=== PATIENT | male | born 2000 | race Caucasian/White ===

== ENCOUNTER 2023-01-31 17:06 | Emergency (ER) | payer MEDICAID, SELFPAY ==
[2023-01-31 17:08] VITALS: BP 142/79; PULSE 105; RESP 20; TEMP 36.9; O2SAT 99; BMI 22.6
--- NOTE | 2023-01-31 17:16 | EDS_ITS ---
HPI History of Present Illness Chief Complaint: Shortness of Breath [facility] Medical History (Updated 01/31/23 @ 19:[address] Rene Chappell, DO) Alcohol abuse Anxiety Migraines Allergy/AdvReac Type Severity Reaction Status Date / Time No Known Allergies Allergy Verified 01/31/23 17:08 Social History Smoking Status: Current every day smoker tobacco type: cigarettes EXAM Physical Exam Const Vital Signs: 01/31/23 17:08 01/31/23 17:17 01/31/23 17:25 Temperature 98.4 F Temperature Source Temporal Pulse Rate 105 H 100 Respiratory Rate 20 H 16 Respiratory Effort Respiratory Depth Respiratory Pattern Blood Pressure 142/79 H 143/89 H Blood Pressure Mean 100 107 Pulse Ox 99 100 Oxygen Delivery Method Room Air Room Air Room Air 01/31/23 17:32 Temperature Temperature Source Pulse Rate Respiratory Rate Respiratory Effort Normal Non-Labored Respiratory Depth Normal Respiratory Pattern Normal Blood Pressure Blood Pressure Mean Pulse Ox Oxygen Delivery Method Room Air MDM MDM MDM Narrative Medical decision making narrative: HISTORY OF PRESENT ILLNESS: 22-year-old male here for shortness of breath, cough. He notes hemoptysis, sore throat and ear pain. He further states this began just prior to arrival. D enies any sick contacts. Denies any syncope. States symptoms are nonexertional. Nonpleuritic. He does note a cough states he has a chronic smoker's cough. States he smokes he was 15 years old The patient denies recent surgery in the last 4 weeks or immobilization in the last 3 days, denies previous diagnosis of DVT or PE, hemoptysis, unilateral leg swelling or malignancy with treatment the last 6 months. No estrogen use noted. Patient denies sudden onset of pain, no tearing sensation, no migratory symptoms, no new numbness, weakness or loss of sensation. Patient denies family history or personal history of Marfan syndrome or Svetlana-Danlos REVIEW OF SYSTEMS: Pertinent positives: Chest pain, shortness of breath, hemoptysis Pertinent negatives: Syncope, numbness, loss of sensation PHYSICAL EXAM: Nursing triage notes reviewed, Vital signs reviewed Constitutional: please see mdm HENT: MMM Eyes: Pupils equal round and reactive to light, Extraocular muscles intact Neck: No stridor, no JVD, full neck ROM Lungs: Clear to auscultation, No wheezing or rales. No increased work of breathing, no conversational dyspnea, no accessory muscle use, no nasal flaring. No respiratory distress noted Heart: Regular rate and rhythm, No murmurs, No rubs and No gallops, 2+ distal pulses (radial, femoral, posterior tibial) in all extremities Abdomen: Soft, there is no tenderness, rigidity, rebound or guarding, no obvious peritoneal signs, no palpable pulsatile abdominal masses, no auscultated abdominal bruit : No CVAT Extremities: No edema Neuro: No focal neurological deficits, cranial nerves II through XII intact, 5/5 strength in all extremities. Intact sensation to light touch in all extremities, 2+ reflexes bilateral patella tendons. Normal gait. No ataxia. Skin: No rash or lesions noted MEDICAL DECISION MAKING: Chief Complaint: Chest pain, shortness of breath External records reviewed: No recent advanced imaging of the chest MDM Narrative: Patient was initially tachycardic tachypneic otherwise hemodynamically stable afebrile nontoxic-appearing. No focal cardiopulmonary abnormalities. Beyond hemoptysis he had no risk factors for PE. He had a low risk Wells score. His D-dimer was negative. Evalose patient for PE at this time. I considered aortic dissection as been the cause of his chest pain however the patient had no historical factors such as connective tissue disease history or signs on exam such as pulse deficits or focal neurologic deficits to suggest aortic dissection at this time. I was also concerned about pneumonia, COVID-19, flu, heart failure, anemia. Chest x-ray showed no evidence of pneumonia or mass or pulmonary edema. Labs were negative for any of these life-limiting etiologies. Clear etiology patient's symptoms. He is appropriate discharge home. Suspect the patient had hemoptysis secondary to chronic smoking and associated lung inflammation. PE less likely given negative D-dimer and low pretest probability. Aortic dissection is thought to be less likely given no sudden ripping or tearing pain, migratory pain, palpable pulse inequalities, no focal neurologic deficits concurrent with chest pain. Chance of dissection less than 09/1999. Pericarditis less likely given no pathognomonic EKG changes (no diffuse ST elevations, VT depressions). GI etiology (i.e. Boerhaave syndrome) less likely given no chest or neck crepitus, no vomiting or forced retching. I completed a HEART Score to screen for Major Adverse Cardiac Event (MACE) in this patient. The evidence indicates that the patient is very low risk for MACE and this is consistent with my clinical intuition. The risk of further workup or hospitalization for MACE is likely higher than the risk of the patient having a MACE. It is, therefore, in the patient?s best interest not to do additional emergent testing or to be hospitalized for MACE at this time. Shared Decision-Making No hospitalization indicated I have discussed with the patient my clinical impression and the result of the HEART Score to screen for MACE, as well as the risks of further testing and hospitalization. The HEART Score shows that the risk for MACE is less than 1%. Although the risk of MACE has not been completely eliminated, the risks of further testing or hospitalization for MACE likely exceed any potential benefit, and the patient agrees with not pursuing further emergent evaluation or hospitalization for MACE at this time. Factors affecting care: None Social determinants of health: Current everyday smoker History obtained from others: None Shared decision making: I will have a discussion with the patient and or visitors regarding risk/benefits of further testing or admission. They will be made aware of of the risk/benefits inherent in this decision they will be given the opportunity to voice understanding. Consults: None Lab Data Attestation: I reviewed the patient's lab results. Lab results narrative: CBC with leukocytosis suggestive of systemic inflammation, no anemia or thrombocytopenia noted BMP with mild hypokalemia, no EZE or electrolyte abnormality Troponin is negative, no evidence of myocardial ischemia BNP negative for volume overload, increased ventricular stretch or signs of right heart strain D-dimer negative lowering suspicion for VTE EKG with normal sinus rhythm, normal axis, normal intervals, no ST or T wave changes to suggest ischemia. No evidence of WPW, Brugada, ARVD. Labs: Laboratory Results - last 24 hr 01/31/23 01/31/23 01/31/23 17:27 17:27 17:27 WBC 11.1 H RBC 4.92 Hgb 15.2 Hct 43.7 MCV 88.8 MCH 30.9 MCHC 34.8 RDW Std Deviation 40.9 RDW Coeff of Alison 12.5 Plt Count 150 MPV 8.7 Immature Gran % (Auto) 0.400 Neut % (Auto) 80.8 H Lymph % (Auto) 11.7 L [place] % (Auto) 6.3 Eos % (Auto) 0.6 Baso % (Auto) 0.2 Absolute Neuts (auto) 9.0 H Absolute Lymphs (auto) 1.30 Nucleated RBC % 0 D-Dimer Quant (PE/DVT) Sodium 140 Potassium 3.4 L Chloride 105 Carbon Dioxide 26.0 Anion Gap 9 BUN 16 Creatinine 1.03 Estim Creat Clear Calc 122.87 Est GFR (MDRD) Af Amer 118 Est GFR (MDRD) Non-Af 97 BUN/Creatinine Ratio 15.5 Glucose 136 H Calcium 8.9 Troponin I High Sens 4 B-Natriuretic Peptide 23.8 01/31/23 17:54 WBC RBC Hgb Hct MCV MCH MCHC RDW Std Deviation RDW Coeff of Alison Plt Count MPV Immature Gran % (Auto) Neut % (Auto) Lymph % (Auto) [place] % (Auto) Eos % (Auto) Baso % (Auto) Absolute Neuts (auto) Absolute Lymphs (auto) Nucleated RBC % D-Dimer Quant (PE/DVT) < 0.27 L Sodium Potassium Chloride Carbon Dioxide Anion Gap BUN Creatinine Estim Creat Clear Calc Est GFR (MDRD) Af Amer Est GFR (MDRD) Non-Af BUN/Creatinine Ratio Glucose Calcium Troponin I High Sens B-Natriuretic Peptide Radiography Chest X-Ray - ED: Read by ED Physician Diagnostic Testing: Clinical Impression(s) from Imaging Studies Chest X-Ray 01/31/23 17:35 IMPRESSION: Normal x-ray examination of the chest. Electronically Signed: Justen Venegas DO at 17:49 EDT Reading Location ID and State: [address] [place] [address] Tel [phone], Service support , I have personally reviewed the patient's chest x-ray. Chest x-ray is unremarkable for pulmonary edema, pneumothorax, pneumonia or focal cardiopulmonary abnormality. Discharge Plan Triage Chief Complaint: Shortness of Breath ED Provider: Rene Chappell Dx/Rx/DC Orders Clinical Impression: Chest pain, Hemoptysis Stand Alone Forms: ED Work / School Excuse Primary Care Provider: Nevaeh Wright Referrals: Nevaeh Wright MD [Primary Care Provider] - Activity Restrictions/Additional Instructions: Thank you for trusting us with your care today! Please take Tylenol (2 pills, 650 mg), ibuprofen (2 pills, 400 mg) every 6 hours as needed for pain and fever control. Please return to the emergency department if your symptoms change or worsen. Specifically if you lose consciousness he develop worsening chest pain or if your symptoms change or worsen in any way. Please follow with your primary care physician for further outpatient evaluation and management. Disposition Disposition: Home, Self Care Discharge Date/Time: 01/31/23 19:11
--- NOTE | 2023-01-31 17:17 | EKG12_ITS ---
Test Reason : SOB Blood Pressure : / mmHG Vent. Rate : 095 BPM Atrial Rate : 095 BPM P-R Int : 148 ms QRS Dur : 074 ms QT Int : 332 ms P-R-T Axes : 068 071 035 degrees QTc Int : 417 ms Normal sinus rhythm Normal ECG Confirmed by AMY MCKEON, YVONNE ([id number]), assignment desk editor AL ABDI ([id number]) on 02/01/2023 9:50:53 AM Referred By: ROQUE Confirmed By:YVONNE REYES MD
--- NOTE | 2023-01-31 17:20 | ED.RN ---
NO OLD EKGS
[2023-01-31 17:25] VITALS: BP 143/89; PULSE 100; RESP 16; O2SAT 100
[2023-01-31 17:32] VITALS: O2SAT 100
[2023-01-31 17:34] LABS: Basophil# 0.02 X10^3/uL; Basophil% 0.2 % (0-1); Eosinophil# 0.07 X10^3/uL; Eosinophils% 0.6 % (0-5); Hematocrit 43.7 % (40-54); Hemoglobin 15.2 g/dL (13.0-16.5); Lymphocyte % 11.7 % (19-41); Mean Corp Hgb Conc 34.8 g/dL (32-36); Mean Corpuscular Hgb 30.9 pg (27.0-32.0); Mean Corpuscular Volume 88.8 fL (80-94); Mean Platelet Vol. 8.7 fl (6.2-12.0); Monocyte% 6.3 % (0-10); NRBC Flagged by Analyzer 0 % (0-5); Neutrophil # 8.99 X10^3/uL (2.7-7.7); Neutrophil % 80.8 % (47-70); Platelet Count 150 K/mm3 (150-450); RBC Distribution Width CV 12.5 % (11.6-14.6); RBC Distribution Width SD 40.9 fl (35.1-43.9); Red Blood Count 4.92 M/mm3 (4.6-6.2); White Blood Count 11.1 K/mm3 (4.4-11.0)
--- NOTE | 2023-01-31 17:35 | RAD_ITS ---
STUDY: X-RAY CHEST REASON FOR EXAM: Male, 22 years old. Shortness of breath. TECHNIQUE: Single AP portable view of the chest. COMPARISON: None. FINDINGS: The lungs are clear and expanded. There is no demonstrated pleural abnormality. Normal size heart. Normal mediastinum and bianca. Normal visualized pulmonary arteries. Normal visualized aortic arch and descending thoracic aorta. Normal visualized thoracic spine. Normal visualized ribs, clavicles, and shoulders. There is no demonstrated abnormality of the visualized soft tissue structures of the upper abdomen. RAD/Chest PA and Lateral IMPRESSION: Normal x-ray examination of the chest. Electronically Signed: Justen Venegas DO at 17:49 EDT ,
[2023-01-31 17:50] LABS: BNP,B-Type NATRIURETIC PEPTIDE 23.8 pg/mL (0-100)
[2023-01-31 17:55] LABS: Anion Gap 9 (5-15); BUN 16 mg/dL (7-18); BUN/Creat Ratio 15.5 RATIO (10-20); Calcium,Total 8.9 mg/dL (8.5-10.1); Chloride 105 mmol/L (98-107); Creatinine, Serum 1.03 mg/dL (0.70-1.30); EST Glomerular Filtration Rate 97 mL/min (>60); Est Glom Filt Rate - Afr Amer 118 mL/min (>60); Estimated Creatinine Clearance 122.87 ml/min; Glucose 136 mg/dL (74-106); Potassium 3.4 mmol/L (3.5-5.1); Sodium Level 140 mmol/L (136-145); Troponin-I HS 4 pg/mL (3.0-78.0)
[2023-01-31 18:13] LABS: D-Dimer Quantitative (DVT/PE) < 0.27 FEU/ug/m (0.27-0.49)
== END 2023-01-31 19:11 | disposition home or self-care (01) ==
PROVIDERS: Emergency Provider Emergency Medicine; Visit Provider Emergency Medicine
DX: R07.9 Chest pain, unspecified (principal); R04.2 Hemoptysis; J02.9 Acute pharyngitis, unspecified; H92.09 Otalgia, unspecified ear; F17.210 Nicotine dependence, cigarettes, uncomplicated
CPT/HCPCS: 71046; 80048; 83880; 84484; 85025; 85379; 87428; 93005; 99284; A4216

== ENCOUNTER 2023-05-13 18:36 | Emergency (ER) | payer OTHER, MEDICAID, SELFPAY ==
[2023-05-13 18:37] VITALS: BP 170/93; PULSE 87; RESP 16; TEMP 36.1; O2SAT 100; BMI 22.6
--- NOTE | 2023-05-13 19:22 | EDS_ITS ---
HPI History of Present Illness Chief Complaint: Flank Pain Informant: patient Narrative Narrative: Patient complains of right-sided back pain. Patient's been having pain in his back for about 2 weeks. It is worse in the morning when he first gets up. It is worse with twisting and moving. He does a lot of lifting and climbing stairs at work. He has no urinary symptoms. He evidently was at urgent care they checked his urine and he had no blood at all in his urine. They sent him over here. He has never had numbness tingling weakness. No radicular symptoms. No abdominal pain. He is eating and drinking normally. Moving bowels normally and passing urine normally. No personal or family history of kidney stones. No recent weight gain or weight loss. [facility] Medical History Alcohol abuse Anxiety Migraines Home Medications cyclobenzaprine 10 mg tablet 10 mg PO TID PRN Muscle Spasm #20 TABLETS 05/13/23 [Rx Last Taken Unknown] naproxen 500 mg tablet 500 mg PO BID #20 tabs 05/13/23 [Rx Last Taken Unknown] Allergy/AdvReac Type Severity Reaction Status Date / Time No Known Allergies Allergy Verified 01/31/23 17:08 Social History Smoking Status: Current every day smoker tobacco type: cigarettes ROS ROS ED ROS Narrative A complete review of systems was performed and is negative except as documented in the history of present illness. Some specific details below. Constitutional: No recent fevers or chills. No rigors. Patient has not generally felt ill. EYE: No visual complaints ENT: No sinus pressure or pain. CV: No chest pain, pressure or aching. No palpitations or irregular beats. Respiratory: No trouble breathing. No cough. GI: No abdominal pain. No nausea vomiting diarrhea. No blood in stool. No loss of bowel control. : No frequency dysuria or hematuria. No incontinence or urinary retention. Musculoskeletal: No recent trauma. No swelling. Please see history of present illness. Skin: No rash. No diaphoresis. No vesicles. Neuro: No weakness or numbness. No pain radiating down leg past the knee. No weakness of ambulation. No sensory changes in the extremities. Please see history of present illness also. Endocrine: No polyuria or polydipsia. EXAM Physical Exam Narrative Exam Narrative: CONSTITUTIONAL: Patient is nontoxic in appearance. The patient looks comfortable. Work of breathing looks normal. HEENT: No notable trauma. Mucous membranes moist. No sinus tenderness. No sign of dental infection. EYES: No conjunctival injection. No pallor. NECK: No meningismus. No JVD. CARDIOVASCULAR: Regular rate. Regular rhythm. No notable murmur. No JVD. RESPIRATORY: No respiratory distress. Breathing is unlabored. No wheezes. No rhonchi. No rales. No pain with a deep breath. GASTROINTESTINAL: Not distended. Bowel sounds are normal. No tenderness. No guarding. No rebound. No palpable mass. No bruit. GENITOURINARY: No tenderness over the bladder. No CVA tenderness. MUSCULOSKELETAL: Atraumatic. No peripheral edema. No cord. No tenderness along the deep venous system. No asymmetry. Distal pulses are intact. When I have him turn especially turning to the left he has a lot more pain in the right back. He is right paraspinal tenderness low lumbar but not CVA tenderness. This really seems like musculoskeletal back pain on exam NEUROLOGICAL: Patient is alert and oriented. No focal deficit noted. Patient can stand on toes and heels and do squats Patellar reflex 2+ bilateral Achilles reflex 1?2+ bilaterally SKIN: No noted rashes. No diaphoresis. No vesicles noted. No notable pallor. PSYCHIATRIC: Patient is calm. Mood is appropriate. Const Vital Signs: 05/13/23 18:37 Temperature 96.9 F L Temperature Source Temporal Pulse Rate 87 Respiratory Rate 16 Blood Pressure 170/93 H Blood Pressure Mean 118 Pulse Ox 100 Oxygen Delivery Method Room Air MDM MDM MDM Narrative Medical decision making narrative: He hadPatient's history and exam are most consistent with musculoskeletal back pain. Urinalysis earlier today that showed no blood. I do not think he needs imaging. I do not think he needs CAT scan or x-rays. I do not think blood work will help. I do not think a repeat urinalysis will help. We will get him on nonsteroidals muscle relaxants ice rest and have him follow-up with primary physician. Discharge Plan Triage Chief Complaint: Flank Pain ED Provider: Chidi Ji Dx/Rx/DC Orders Clinical Impression: Right lumbar pain Instructions: ED Back Pain (Acute or Chronic) Prescriptions: New cyclobenzaprine [cyclobenzaprine] 10 mg tablet 10 mg PO TID PRN (Reason: Muscle Spasm) Qty: 20 0RF naproxen 500 mg tablet 500 mg PO BID Qty: 20 0RF Stand Alone Forms: ED Work / School Excuse Primary Care Provider: Nevaeh Wright Referrals: Nevaeh Wright MD [Primary Care Provider] - 3-5 Days Disposition Disposition: Home, Self Care
== END 2023-05-13 19:34 | disposition home or self-care (01) ==
PROVIDERS: Emergency Provider Emergency Medicine; Visit Provider Emergency Medicine
DX: M54.50 Low back pain, unspecified (principal); F17.210 Nicotine dependence, cigarettes, uncomplicated
CPT/HCPCS: 99282